=== PATIENT | male | born 1955 | race Caucasian/White ===

== ENCOUNTER 2021-02-04 09:15 | Emergency (ER) | payer MEDICARE, BC ==
[2021-02-04] MEDS ORDERED: Sodium Chloride 0.9% 10 ML Syringe FLUSH PRN (09:55)
[2021-02-04] MEDS ORDERED: Pantoprazole 40 MG Vial IVPUSH ONE (09:56)
[2021-02-04] MEDS ORDERED: Sodium Chloride 0.9% 1,000 ML IV SCH ×3 (10:00→12:15)
--- NOTE | 2021-02-04 11:23 | EDM.PDOC ---
ED HPI GENERAL MEDICAL PROBLEM - General Chief Complaint: Gastrointestinal Problem Stated Complaint: LOW BP/BLACK STOOL/BODY SWEATS Time Seen by Provider: 02/04/21 09:38 Source of Information: Reports: Patient, RN Notes Reviewed - History of Present Illness INITIAL COMMENTS - FREE TEXT/NARRATIVE: 65 yr old male had an episode of black watery diarrhea last evening with feeling of "upset stomach" and than a more formed black stool this AM not long ago. Did eat out yesterday noon in [place], pancake, eggs type of meal. No fever or chills. Feels mildly short of breath with walking, very mild dizziness when standing and walking. No bright blood at any time. No nausea or vomiting. No hx recent ansaids. Has never had anythng like this before. - Related Data Allergies Allergy/AdvReac Type Severity Reaction Status Date / Time No Known Allergies Allergy Verified 02/04/21 09:35 Home Meds: Home Meds Aspirin 81 mg PO ASDIRECTED 02/04/21 [History] Pantoprazole Sodium [Protonix] 40 mg PO BID #20 tablet. 02/04/21 [Rx] amLODIPine [Norvasc] 5 mg PO DAILY 02/04/21 [History] atorvaSTATin [Lipitor] 40 mg PO BEDTIME 02/04/21 [History] lisinopriL [Lisinopril] 20 mg PO 02/04/21 [History] Past Medical History HEENT History: Reports: Cataract Cardiovascular History: Reports: High Cholesterol, Hypertension Respiratory History: Reports: None Gastrointestinal History: Reports: GERD Genitourinary History: Reports: None Musculoskeletal History: Reports: None Neurological History: Reports: Vertigo Psychiatric History: Reports: None Endocrine/Metabolic History: Reports: [place]'s Disease Hematologic History: Reports: None Immunologic History: Reports: None Oncologic (Cancer) History: Reports: None Dermatologic History: Reports: None - Infectious Disease History Infectious Disease History: Reports: Chicken Pox, Mumps - Past Surgical History Head Surgeries/Procedures: Reports: None HEENT Surgical History: Reports: Adenoidectomy, Cataract Surgery, Detached Retina, Eye Surgery, LASIK, Oral Surgery, Tonsillectomy, Other (See Below) Other HEENT Surgeries/Procedures: PRA Social & Family History - Family History Family Medical History: No Pertinent Family History Cardiac: Reports: [place] Neurological: Reports: CVA Endocrine/Metabolic: Reports: Diabetes, type II - Tobacco Use Tobacco Use Status *Q: Never Tobacco User - Caffeine Use Caffeine Use: Reports: Coffee, Tea - Recreational Drug Use Recreational Drug Use: No ED ROS GENERAL - Review of Systems Review Of Systems: See Below Constitutional: Denies: Fever, Chills HEENT: Reports: No Symptoms Respiratory: Denies: Shortness of Breath Cardiovascular: Denies: Chest Pain GI/Abdominal: Reports: Abdominal Pain (mild, upper and mid abd), Diarrhea, Decreased Appetite, Melena : Reports: No Symptoms Musculoskeletal: Reports: No Symptoms Skin: Reports: Pallor Neurological: Reports: Dizziness (mild) ED EXAM, GI/ABD - Physical Exam Exam: See Below General Appearance: Alert, No Apparent Distress Throat/Mouth: Normal Inspection, Normal Oropharynx Head: Atraumatic Neck: Supple Respiratory/Chest: No Respiratory Distress, Lungs Clear, Normal Breath Sounds Cardiovascular: Tachycardia GI/Abdominal Exam: Soft, Non-Tender Rectal (Males) Exam: Other (small amt of black stool, moderately heme pos. ) Back Exam: No: CVA Tenderness (L), CVA Tenderness (R) Extremities: Normal Inspection, Normal Range of Motion. No: Pedal Edema, Leg Pain Neurological: Alert, Oriented, No Motor/Sensory Deficits Skin Exam: Warm, Dry, Normal Color, No Rash Course - Vital Signs Last Recorded V/S: Last Vital Signs Temp 97.3 F 02/04/21 09:39 Pulse 120 H 02/04/21 09:39 Resp 22 H 02/04/21 09:39 BP 131/81 02/04/21 09:39 Pulse Ox 98 02/04/21 09:39 Orthostatic Blood Pressure [ 118/77 Standing] Orthostatic Blood Pressure [ 110/88 Sitting] Orthostatic Blood Pressure [ 134/84 Supine] - Orders/Labs/Meds Orders: Active Orders 24 hr Category Date Time Status PATIENT RETYPE [BBK] Routine Lab 02/04/21 10:34 Ordered Peripheral IV Insertion Adult [OM.PC] Stat Oth 02/04/21 09:55 Ordered Labs: Laboratory Tests 02/04/21 02/04/21 02/04/21 Range/Units 09:35 09:35 09:35 WBC 10.77 H (4.23-9.07) K/mm3 RBC 3.76 L (4.63-6.08) M/mm3 Hgb 11.9 L (13.7-17.5) gm/dl Hct 35.2 L (40.1-51.0) % MCV 93.6 H (79.0-92.2) fl MCH 31.6 (25.7-32.2) pg MCHC 33.8 (32.2-35.5) g/dl RDW Std Deviation 44.5 H (35.1-43.9) fL Plt Count 254 (163-337) K/mm3 MPV 9.7 (9.4-12.3) fl Neut % (Auto) 70.9 H (34.0-67.9) % Lymph % (Auto) 20.1 L (21.8-53.1) % [place] % (Auto) 8.0 (5.3-12.2) % Eos % (Auto) 0.5 L (0.8-7.0) Baso % (Auto) 0.3 (0.1-1.2) % Neut # (Auto) 7.65 H (1.78-5.38) K/mm3 Lymph # (Auto) 2.16 (1.32-3.57) K/mm3 [place] # (Auto) 0.86 H (0.30-0.82) K/mm3 Eos # (Auto) 0.05 (0.04-0.54) K/mm3 Baso # (Auto) 0.03 (0.01-0.08) K/mm3 Manual Slide Review Normal smear Sodium 141 (136-145) mEq/L Potassium 4.8 (3.5-5.1) mEq/L Chloride 106 (98-107) mEq/L Carbon Dioxide 24 (21-32) mEq/L Anion Gap 15.8 H (5-15) BUN 55 H (7-18) mg/dL Creatinine 1.1 (0.7-1.3) mg/dL Est Cr Clr Drug Dosing 67.29 mL/min Estimated GFR (MDRD) > 60 (>60) mL/min BUN/Creatinine Ratio 50.0 H (14-18) Glucose 143 H (70-99) mg/dL Calcium 8.4 L (8.5-10.1) mg/dL Total Bilirubin 0.8 (0.2-1.0) mg/dL AST 23 (15-37) U/L ALT 49 (16-63) U/L Alkaline Phosphatase 72 (46-116) U/L Total Protein 6.9 (6.4-8.2) g/dl Albumin 3.5 (3.4-5.0) g/dl Globulin 3.4 gm/dL Albumin/Globulin Ratio 1.0 (1-2) SARS-CoV-2 RNA (ONOFRE) (NEGATIVE) Blood Type A POSITIVE Gel Antibody Screen Negative 02/04/21 Range/Units 09:38 WBC (4.23-9.07) K/mm3 RBC (4.63-6.08) M/mm3 Hgb (13.7-17.5) gm/dl Hct (40.1-51.0) % MCV (79.0-92.2) fl MCH (25.7-32.2) pg MCHC (32.2-35.5) g/dl RDW Std Deviation (35.1-43.9) fL Plt Count (163-337) K/mm3 MPV (9.4-12.3) fl Neut % (Auto) (34.0-67.9) % Lymph % (Auto) (21.8-53.1) % [place] % (Auto) (5.3-12.2) % Eos % (Auto) (0.8-7.0) Baso % (Auto) (0.1-1.2) % Neut # (Auto) (1.78-5.38) K/mm3 Lymph # (Auto) (1.32-3.57) K/mm3 [place] # (Auto) (0.30-0.82) K/mm3 Eos # (Auto) (0.04-0.54) K/mm3 Baso # (Auto) (0.01-0.08) K/mm3 Manual Slide Review Sodium (136-145) mEq/L Potassium (3.5-5.1) mEq/L Chloride (98-107) mEq/L Carbon Dioxide (21-32) mEq/L Anion Gap (5-15) BUN (7-18) mg/dL Creatinine (0.7-1.3) mg/dL Est Cr Clr Drug Dosing mL/min Estimated GFR (MDRD) (>60) mL/min BUN/Creatinine Ratio (14-18) Glucose (70-99) mg/dL Calcium (8.5-10.1) mg/dL Total Bilirubin (0.2-1.0) mg/dL AST (15-37) U/L ALT (16-63) U/L Alkaline Phosphatase (46-116) U/L Total Protein (6.4-8.2) g/dl Albumin (3.4-5.0) g/dl Globulin gm/dL Albumin/Globulin Ratio (1-2) SARS-CoV-2 RNA (ONOFRE) Negative (NEGATIVE) Blood Type Gel Antibody Screen Meds: Medications Discontinued Medications Generic Name Dose Route Start Last Admin Trade Name Freq PRN Reason Stop Dose Admin Sodium Chloride 1,000 mls @ 999 mls/hr 02/04/21 10:00 02/04/21 10:01 Normal Saline IV 999 mls/hr ONETIME MAXIMILIANO Administration Sodium Chloride 1,000 mls @ 999 mls/hr 02/04/21 12:15 02/04/21 12:22 Normal Saline IV 999 mls/hr ONETIME MAXIMILIANO Administration Sodium Chloride 1,000 mls @ 999 mls/hr 02/04/21 12:15 Normal Saline IV ONETIME MAXIMILIANO Pantoprazole Sodium 40 mg 02/04/21 09:56 02/04/21 10:01 Pantoprazole 40 Mg Vial IVPUSH 02/04/21 09:57 40 mg ONETIME ONE Administration Sodium Chloride 10 ml 02/04/21 09:55 02/04/21 10:01 Sodium Chloride 0.9% 10 Ml Syringe FLUSH 10 ml ASDIRECTED PRN Administration Keep Vein Open - Re-Assessments/Exams Free Text/Narrative Re-Assessment/Exam: 02/04/21 15:11. No further diarrhea or BM while here in the ED. Hgb 11.9, other labs are relatively normal. He did have mild tachycardia on arrival which imrpoved with 1 liter NS and further improved after 2nd liter NS. I have discussed this with Dr Guzman, Gen. Surgeon centrifugal station operator. He agrees that pt does not appear to be actively bleeding in a significant way, appears medically stable to go home and be managed outpatient. Pt feels much better after IV fluid, discharge instr. as documented. Departure - Departure Time of Disposition: 13:15 Disposition: Home, Self-Care 01 Condition: Fair Clinical Impression: Upper GI hemorrhage Diarrhea Qualifiers: Diarrhea type: unspecified type Qualified Code(s): R19.7 - Diarrhea, unspecified - Discharge Information Prescriptions: Pantoprazole Sodium [Protonix] 40 mg PO BID #20 tablet.dr Instructions: Gastrointestinal Bleeding, [id number] Referrals: Marcelino Brian MD [Primary Care Provider] - Forms: ED Department Discharge Additional Instructions: Clear liquids until this evening, than careful bland diet as tolerated. No as pirin or antiinflmatories for now. Protonix 40 twice daily. Prescription has been sent to [facility]. See Dr Guzman next week. Call [phone] for appointment. Return to ED as needed if symptoms worsening in any way. Sepsis Event Note (ED) - Evaluation Sepsis Screening Result: No Definite Risk - Focused Exam Vital Signs: Vital Signs Temp Pulse Resp BP Pulse Ox 02/04/21 09:39 97.3 F 120 H 22 H 131/81 98 - My Orders Last 24 Hours: My Active Orders 02/04/21 09:55 Peripheral IV Insertion Adult [OM.PC] Stat 02/04/21 10:34 PATIENT RETYPE [BBK] Routine - Assessment/Plan Last 24 Hours: My Active Orders 02/04/21 09:55 Peripheral IV Insertion Adult [OM.PC] Stat 02/04/21 10:34 PATIENT RETYPE [BBK] Routine
== END 2021-02-04 13:31 | disposition home or self-care (01) ==
LOC: JD.ED 09:15
DX: K92.2 Gastrointestinal hemorrhage, unspecified (principal); R19.7 Diarrhea, unspecified; E78.00 Pure hypercholesterolemia, unspecified; I10 Essential (primary) hypertension; K21.9 Gastro-esophageal reflux disease without esophagitis; Z79.899 Other long term (current) drug therapy; Z79.82 Long term (current) use of aspirin; Z20.822 Contact with and (suspected) exposure to COVID-19
CPT/HCPCS: 36415; 80053; 85025; 86850; 86900; 86901; 96374; 99284; C9113; J7030; U0002; 99283

== ENCOUNTER 2021-02-06 15:02 | Observation (INO) | payer MEDICARE, BC ==
[2021-02-06] MEDS ORDERED: Sodium Chloride 0.9% 10 ML Syringe FLUSH PRN (15:18)
[2021-02-06] MEDS ORDERED: Pantoprazole 40 MG Vial IVPUSH ONE (16:23)
--- NOTE | 2021-02-06 16:44 | EDM.PDOC ---
ED HPI GENERAL MEDICAL PROBLEM - General Chief Complaint: General Stated Complaint: SENT BY [facility] NOT GETTING BETTER Time Seen by Provider: 02/06/21 15:04 Source of Information: Reports: Patient, Family, RN Notes Reviewed History Limitations: Reports: No Limitations - History of Present Illness INITIAL COMMENTS - FREE TEXT/NARRATIVE: Patient is a 65-year-old male presenting to the emergency department at the request of the general surgeon at [place]. He has had dark stools since Tuesday of this week. He was seen in our emergency department and at that time found to have an hemoglobin of 11.9. He had his hemoglobin rechecked at the clinic today and it was found to be low at 8.2. He was advised to come to the emergency department to be admitted with plans of completing an EGD tomorrow. He denies any dizziness upon standing, however states that he has been fatigued and short of breath with exertion. He is much more pale than normal. Denies any history of GI bleeds. Denies any chest pain or shortness of breath at rest. Reports that he has had 1-2 dark stools daily since Tuesday. Abdominal Pain Score (Numeric/FACES): 0 - Related Data Allergies Allergy/AdvReac Type Severity Reaction Status Date / Time No Known Allergies Allergy Verified 02/07/21 00:40 Home Meds: Home Meds Aspirin 81 mg PO ASDIRECTED 02/04/21 [History] Pantoprazole Sodium [Protonix] 40 mg PO BID #20 tablet. 02/04/21 [Rx] amLODIPine [Norvasc] 5 mg PO DAILY 02/04/21 [History] atorvaSTATin [Lipitor] 40 mg PO BEDTIME 02/04/21 [History] lisinopriL [Lisinopril] 20 mg PO DAILY 02/04/21 [History] Past Medical History HEENT History: Reports: Cataract Cardiovascular History: Reports: High Cholesterol, Hypertension Respiratory History: Reports: None Gastrointestinal History: Reports: GERD Genitourinary History: Reports: None Musculoskeletal History: Reports: None Neurological History: Reports: Vertigo Psychiatric History: Reports: None Endocrine/Metabolic History: Reports: [place]'s Disease Hematologic History: Reports: None Immunologic History: Reports: None Oncologic (Cancer) History: Reports: None Dermatologic History: Reports: None - Infectious Disease History Infectious Disease History: Reports: Chicken Pox, Mumps - Past Surgical History Head Surgeries/Procedures: Reports: None HEENT Surgical History: Reports: Adenoidectomy, Cataract Surgery, Detached Retina, Eye Surgery, LASIK, Oral Surgery, Tonsillectomy, Other (See Below) Other HEENT Surgeries/Procedures: PRA Social & Family History - Family History Family Medical History: No Pertinent Family History Cardiac: Reports: [place] Neurological: Reports: CVA Endocrine/Metabolic: Reports: Diabetes, type II - Tobacco Use Tobacco Use Status *Q: Former Tobacco User Used Tobacco, but Quit: Yes Month/Year Tobacco Last Used: 30 yrs - Caffeine Use Caffeine Use: Reports: Coffee, Tea - Recreational Drug Use Recreational Drug Use: No ED ROS GENERAL - Review of Systems Review Of Systems: See Below Constitutional: Reports: Weakness, Fatigue. Denies: Fever, Chills HEENT: Reports: No Symptoms Respiratory: Reports: Shortness of Breath (With exertion) Cardiovascular: Reports: Dyspnea on Exertion. Denies: Chest Pain, Lightheadedness Endocrine: Reports: No Symptoms GI/Abdominal: Reports: Black Stool. Denies: Abdominal Pain, Nausea, Vomiting : Reports: No Symptoms Musculoskeletal: Reports: No Symptoms Skin: Reports: No Symptoms Neurological: Reports: No Symptoms Psychiatric: Reports: No Symptoms Hematologic/Lymphatic: Reports: No Symptoms Immunologic: Reports: No Symptoms ED EXAM, GENERAL - Physical Exam Exam: See Below Exam Limited By: No Limitations General Appearance: Alert, WD/WN, No Apparent Distress Respiratory/Chest: No Respiratory Distress, Lungs Clear, Normal Breath Sounds, No Accessory Muscle Use, Chest Non-Tender Cardiovascular: Normal Peripheral Pulses, Regular Rate, Rhythm, No Edema, No Gallop, No JVD, No Murmur, No Rub Neurological: Alert, Oriented, CN II-XII Intact, Normal Cognition, Normal Gait, Normal Reflexes, No Motor/Sensory Deficits Psychiatric: Normal Affect, Normal Mood Skin Exam: Warm, Dry, Intact, No Rash, Pallor Course - Vital Signs Last Recorded V/S: Last Vital Signs Temp 98.4 F 02/07/21 09:45 Pulse 94 02/07/21 16:15 Resp 12 02/07/21 16:15 BP 124/60 02/07/21 16:15 Pulse Ox 93 L 02/07/21 16:15 - Orders/Labs/Meds Orders: Medication Orders Acetaminophen (Acetaminophen 325 Mg Tab) 650 mg PO Q4H PRN PRN Reason: Pain (Mild 1-3)/fever Atorvastatin Calcium (Atorvastatin 40 Mg Tab) 40 mg PO BEDTIME [facility] Last Admin: 02/07/21 20:32 Dose: 40 mg Documented by: ALICE Lactated Ringer's (Ringers, Lactated) 1,000 mls @ 75 mls/hr IV ASDIRECTED [facility] Last Admin: 02/07/21 16:11 Dose: 75 mls/hr Documented by: Infusion: 02/07/21 13:52 Dose: 75 mls/hr Documented by: Admin: 02/07/21 03:05 Dose: 125 mls/hr Documented by: Infusion: 02/07/21 02:53 Dose: 125 mls/hr Documented by: Admin: 02/06/21 18:53 Dose: 125 mls/hr Documented by: MATEUS Ondansetron HCl (Ondansetron 4 Mg Tab.Dis) 4 mg PO Q4H PRN PRN Reason: nausea, able to take PO Ondansetron HCl (Ondansetron 4 Mg/2 Ml Sdv) 4 mg IV Q4H PRN PRN Reason: Nausea/Vomiting Ondansetron HCl (Ondansetron 4 Mg/2 Ml Sdv) 4 mg IVPUSH ONETIME PRN PRN Reason: Nausea/Vomiting Pantoprazole Sodium (Pantoprazole 40 Mg Vial) 40 mg IVPUSH Q12H [facility] Last Admin: 02/07/21 16:02 Dose: 40 mg Documented by: Admin: 02/07/21 04:29 Dose: 40 mg Documented by: MAXIMILIANO Sodium Chloride (Sodium Chloride 0.9% 10 Ml Syringe) 10 ml FLUSH ASDIRECTED PRN PRN Reason: Keep Vein Open Last Admin: 02/06/21 16:00 Dose: 10 ml Documented by: SHAHANA Labs: Laboratory Tests 02/06/21 02/06/21 02/06/21 Range/Units 16:00 16:00 16:00 WBC 6.79 (4.23-9.07) K/mm3 RBC 2.61 L (4.63-6.08) M/mm3 Hgb 8.2 L D (13.7-17.5) gm/dl Hct 24.7 L (40.1-51.0) % MCV 94.6 H (79.0-92.2) fl MCH 31.4 (25.7-32.2) pg MCHC 33.2 (32.2-35.5) g/dl RDW Std Deviation 45.1 H (35.1-43.9) fL Plt Count 156 L D (163-337) K/mm3 MPV 9.8 (9.4-12.3) fl Neut % (Auto) 58.4 (34.0-67.9) % Lymph % (Auto) 27.7 (21.8-53.1) % [place] % (Auto) 11.6 (5.3-12.2) % Eos % (Auto) 1.8 (0.8-7.0) Baso % (Auto) 0.4 (0.1-1.2) % Neut # (Auto) 3.96 (1.78-5.38) K/mm3 Lymph # (Auto) 1.88 (1.32-3.57) K/mm3 [place] # (Auto) 0.79 (0.30-0.82) K/mm3 Eos # (Auto) 0.12 (0.04-0.54) K/mm3 Baso # (Auto) 0.03 (0.01-0.08) K/mm3 Sodium 137 (136-145) mEq/L Potassium 3.8 (3.5-5.1) mEq/L Chloride 105 (98-107) mEq/L Carbon Dioxide 25 (21-32) mEq/L Anion Gap 10.8 (5-15) BUN 29 H D (7-18) mg/dL Creatinine 1.3 (0.7-1.3) mg/dL Est Cr Clr Drug Dosing 56.93 mL/min Estimated GFR (MDRD) 55 (>60) mL/min BUN/Creatinine Ratio 22.3 H (14-18) Glucose 113 H (70-99) mg/dL Calcium 7.7 L (8.5-10.1) mg/dL Total Bilirubin 0.5 (0.2-1.0) mg/dL AST 24 (15-37) U/L ALT 42 (16-63) U/L Alkaline Phosphatase 61 (46-116) U/L Total Protein 5.7 L (6.4-8.2) g/dl Albumin 3.1 L (3.4-5.0) g/dl Globulin 2.6 gm/dL Albumin/Globulin Ratio 1.2 (1-2) Blood Type A POSITIVE Gel Antibody Screen Negative Crossmatch See Detail Meds: Medications Generic Name Dose Route Start Last Admin Trade Name Carrollq PRN Reason Stop Dose Admin Acetaminophen 650 mg 02/06/21 17:08 Acetaminophen 325 Mg Tab PO Q4H PRN Pain (Mild 1-3)/fever Atorvastatin Calcium 40 mg 02/07/21 21:00 02/07/21 20:32 Atorvastatin 40 Mg Tab PO 40 mg BEDTIME MAXIMILIANO Administration Lactated Ringer's 1,000 mls @ 75 mls/hr 02/06/21 17:15 02/07/21 16:11 Ringers, Lactated IV 75 mls/hr ASDIRECTED MAXIMILIANO Administration Ondansetron HCl 4 mg 02/06/21 17:08 Ondansetron 4 Mg Tab.Dis PO Q4H PRN nausea, able to take PO Ondansetron HCl 4 mg 02/06/21 17:08 Ondansetron 4 Mg/2 Ml Sdv IV Q4H PRN Nausea/Vomiting Ondansetron HCl 4 mg 02/07/21 07:56 Ondansetron 4 Mg/2 Ml Sdv IVPUSH ONETIME PRN Nausea/Vomiting Pantoprazole Sodium 40 mg 02/07/21 05:00 02/07/21 16:02 Pantoprazole 40 Mg Vial IVPUSH 40 mg Q12H MAXIMILIANO Administration Sodium Chloride 10 ml 02/06/21 15:18 02/06/21 16:00 Sodium Chloride 0.9% 10 Ml Syringe FLUSH 10 ml ASDIRECTED PRN Administration Keep Vein Open Discontinued Medications Generic Name Dose Route Start Last Admin Trade Name Freq PRN Reason Stop Dose Admin Ephedrine Sulfate Confirm 02/07/21 07:12 Ephedrine 50 Mg/Ml Sdv Administered 02/07/21 07:13 Dose 50 mg .ROUTE .STK-MED ONE Fentanyl Confirm 02/07/21 07:11 Fentanyl 100 Mcg/2 Ml Sdv Administered 02/07/21 07:12 Dose 100 mcg .ROUTE .STK-MED ONE Lidocaine HCl Confirm 02/07/21 07:10 Xylocaine-Mpf 1% Administered 02/07/21 07:11 Dose 4 mls @ as directed .ROUTE .STK-MED ONE Lactated Ringer's Confirm 02/07/21 07:10 Ringers, Lactated Administered 02/07/21 07:11 Dose 1,000 mls @ as directed .ROUTE .STK-MED ONE Magnesium Sulfate 2 gm/ Premix 50 mls @ 25 mls/hr 02/07/21 07:45 02/07/21 08:07 IV Not Given Q1H MAXIMILIANO Magnesium Sulfate 2 gm/ Premix 50 mls @ 25 mls/hr 02/07/21 07:53 02/07/21 09:54 IV 02/07/21 09:52 25 mls/hr ONETIME ONE Administration Lactated Ringer's Confirm 02/07/21 08:04 Ringers, Lactated Administered 02/07/21 08:05 Dose 1,000 mls @ as directed .ROUTE .STK-MED ONE Lactated Ringer's Confirm 02/07/21 09:00 Ringers, Lactated Administered 02/07/21 09:01 Dose 1,000 mls @ as directed .ROUTE .STK-MED ONE Miscellaneous Medication Confirm 02/07/21 07:13 Phenylephrine Hcl In 0.9% Nacl 1 Mg/10 Ml Syringe Administered 02/07/21 07:14 Dose 1 mg .ROUTE .STK-MED ONE Pantoprazole Sodium 40 mg 02/06/21 16:23 02/06/21 16:52 Pantoprazole 40 Mg Vial IVPUSH 02/06/21 16:24 40 mg ONETIME ONE Administration Polyethylene Glycol/Electrolytes 4,000 ml 02/06/21 18:00 02/06/21 18:57 Polyethylene Glycol/Electrolytes 4,000 Ml Bottle PO 02/06/21 18:01 1 each ONETIME ONE Administration Propofol Confirm 02/07/21 07:11 Propofol 200 Mg/20 Ml Sdv Administered 02/07/21 07:12 Dose 400 mg .ROUTE .STK-MED ONE Propofol Confirm 02/07/21 08:35 Propofol 200 Mg/20 Ml Sdv Administered 02/07/21 08:36 Dose 200 mg .ROUTE .STK-MED ONE - Re-Assessments/Exams Free Text/Narrative Re-Assessment/Exam: Patient is a 65-year-old male presenting to the emergency department at the request of general surgeon at [place] to be admitted for upper GI bleed with intent to have EGD completed tomorrow. He reports feeling fatigued and short of breath but denies any dizziness or chest pain. Reports 1-2 black stools per day since Tuesday. Hemoglobin has dropped from 11.9-8.2. I have ordered blood work, EKG, and type and screen. He is currently taking Protonix 40 mg twice daily with his last dose being this morning. I have ordered Protonix 40 mg IV to be given now. 02/06/21 16:50 General surgeon, Dr. Guzman was here to see the patient. He will admit the patient into observation with the intent to have EGD completed tomorrow. Departure - Departure Time of Disposition: 16:51 Disposition: Refer to Observation Condition: Good Clinical Impression: Upper GI hemorrhage - Discharge Information Sepsis Event Note (ED) - Evaluation Sepsis Screening Result: No Definite Risk
--- NOTE | 2021-02-06 17:02 | PCM.HP.2 ---
H&P History of Present Illness - General Date of Service: 02/06/21 Admit Problem/Dx: Admission Diagnosis/Problem Admission Diagnosis/Problem GI bleed not requiring more than 4 units of blood in 24 hours, ICU, or surgery Source of Information: Patient History Limitations: Reports: No Limitations - History of Present Illness Initial Comments - Free Text/Narative: Patient took Saturday 02/03 for orthopedic check. When he got home he had a slight stomach ache and went to have a BM and it was black. Next day, he had another black stool and was not feeling well. He was sent to the ER where he was orthostatic and tachycardic and Hgb was 11.9. He was hydrated and started on protonix. His symptoms resolved and was discharged home. I was called about him and asked for him to follow up with me in clinic next week. However, he has continued to have black stools since then, though to a lesser extent. Today he was not feeling well. He was easily getting fatigued and feels his heart racing with when walking. Also weak. He called the clinic and was sent for a CBC which returned a Hgb of 8.6. I was called about him and asked he go to the ER. in the ER vitals were stable but Hgb was 8.2. I saw him and recommended admission for EGD/Colonoscopy. Of note, he never had any abdominal pain since Tue. He reports that he has been worked up in 10/2020 for feeling of SOB with CXR, EKG, labs which I reviewed. CXR was normal, EKG was non-acute, labs showed Hgb of 15. He reports that he had a stress test as well which was normal. Onset of Symptoms: Reports: Gradual Duration of Symptoms: Reports: Day(s): (4), Getting Worse Location: Reports: Abdomen Improves with: Reports: None Worsens with: Reports: None Associated Symptoms: Reports: Malaise, Weakness - Related Data Allergies/Adverse Reactions: Allergies Allergy/AdvReac Type Severity Reaction Status Date / Time No Known Allergies Allergy Verified 02/04/21 09:35 Home Medications: Home Meds Aspirin 81 mg PO ASDIRECTED 02/04/21 [History] Pantoprazole Sodium [Protonix] 40 mg PO BID #20 tablet. 02/04/21 [Rx] amLODIPine [Norvasc] 5 mg PO DAILY 02/04/21 [History] atorvaSTATin [Lipitor] 40 mg PO BEDTIME 02/04/21 [History] lisinopriL [Lisinopril] 20 mg PO DAILY 02/04/21 [History] Past Medical History HEENT History: Reports: Cataract Cardiovascular History: Reports: High Cholesterol, Hypertension Respiratory History: Reports: None Gastrointestinal History: Reports: GERD Genitourinary History: Reports: None Musculoskeletal History: Reports: None Neurological History: Reports: Vertigo Psychiatric History: Reports: None Endocrine/Metabolic History: Reports: [place]'s Disease Hematologic History: Reports: None Immunologic History: Reports: None Oncologic (Cancer) History: Reports: None Dermatologic History: Reports: None - Infectious Disease History Infectious Disease History: Reports: Chicken Pox, Mumps - Past Surgical History Head Surgeries/Procedures: Reports: None HEENT Surgical History: Reports: Adenoidectomy, Cataract Surgery, Detached Retina, Eye Surgery, LASIK, Oral Surgery, Tonsillectomy, Other (See Below) Other HEENT Surgeries/Procedures: PRA Social & Family History - Family History Family Medical History: No Pertinent Family History Cardiac: Reports: [place] Neurological: Reports: CVA Endocrine/Metabolic: Reports: Diabetes, type II - Tobacco Use Tobacco Use Status *Q: Former Tobacco User Used Tobacco, but Quit: Yes Month/Year Tobacco Last Used: 30 yrs - Caffeine Use Caffeine Use: Reports: Coffee, Tea - Recreational Drug Use Recreational Drug Use: No H&P Review of Systems - Review of Systems: Review Of Systems: See Below General: Reports: No Symptoms HEENT: Reports: No Symptoms Pulmonary: Reports: No Symptoms Cardiovascular: Reports: No Symptoms Gastrointestinal: Reports: Melena Genitourinary: Reports: No Symptoms Musculoskeletal: Reports: No Symptoms Skin: Reports: No Symptoms Psychiatric: Reports: No Symptoms Neurological: Reports: No Symptoms Exam - Exam Exam: See Below - Vital Signs Vital Signs: Last Vital Signs Temp 98.4 F 02/06/21 15:16 Pulse 85 02/06/21 15:16 Resp 20 02/06/21 15:16 BP 101/59 L 02/06/21 15:16 Pulse Ox 97 02/06/21 15:16 Weight: 100.335 kg - Exam General: Alert, Oriented, Cooperative Lungs: Clear to Auscultation, Normal Respiratory Effort Cardiovascular: Regular Rate, Regular Rhythm, Normal S1, Normal S2 GI/Abdominal Exam: Normal Bowel Sounds, Soft, Non-Tender, No Organomegaly, No Distention - Patient Data Lab Results Last 24 hrs: Laboratory Results - last 24 hr 02/06/21 02/06/21 Range/Units 16:00 16:00 WBC 6.79 (4.23-9.07) K/mm3 RBC 2.61 L (4.63-6.08) M/mm3 Hgb 8.2 L D (13.7-17.5) gm/dl Hct 24.7 L (40.1-51.0) % MCV 94.6 H (79.0-92.2) fl MCH 31.4 (25.7-32.2) pg MCHC 33.2 (32.2-35.5) g/dl RDW Std Deviation 45.1 H (35.1-43.9) fL Plt Count 156 L D (163-337) K/mm3 MPV 9.8 (9.4-12.3) fl Neut % (Auto) 58.4 (34.0-67.9) % Lymph % (Auto) 27.7 (21.8-53.1) % [place] % (Auto) 11.6 (5.3-12.2) % Eos % (Auto) 1.8 (0.8-7.0) Baso % (Auto) 0.4 (0.1-1.2) % Neut # (Auto) 3.96 (1.78-5.38) K/mm3 Lymph # (Auto) 1.88 (1.32-3.57) K/mm3 [place] # (Auto) 0.79 (0.30-0.82) K/mm3 Eos # (Auto) 0.12 (0.04-0.54) K/mm3 Baso # (Auto) 0.03 (0.01-0.08) K/mm3 Sodium 137 (136-145) mEq/L Potassium 3.8 (3.5-5.1) mEq/L Chloride 105 (98-107) mEq/L Carbon Dioxide 25 (21-32) mEq/L Anion Gap 10.8 (5-15) BUN 29 H D (7-18) mg/dL Creatinine 1.3 (0.7-1.3) mg/dL Est Cr Clr Drug Dosing 56.93 mL/min Estimated GFR (MDRD) 55 (>60) mL/min BUN/Creatinine Ratio 22.3 H (14-18) Glucose 113 H (70-99) mg/dL Calcium 7.7 L (8.5-10.1) mg/dL Total Bilirubin 0.5 (0.2-1.0) mg/dL AST 24 (15-37) U/L ALT 42 (16-63) U/L Alkaline Phosphatase 61 (46-116) U/L Total Protein 5.7 L (6.4-8.2) g/dl Albumin 3.1 L (3.4-5.0) g/dl Globulin 2.6 gm/dL Albumin/Globulin Ratio 1.2 (1-2) Result Diagrams: 02/06/21 16:00 02/06/21 16:00 Sepsis Event Note - Evaluation Sepsis Screening Result: No Definite Risk - Focused Exam Vital Signs: Vital Signs Temp Pulse Resp BP Pulse Ox 02/06/21 15:16 98.4 F 85 20 101/59 L 97 Problem List Initiated/Reviewed/Updated: No Orders Last 24hrs: Active Orders 24 hr Category Date Time Status Patient Status [ADT] Routine ADT 02/06/21 16:44 Active EKG Documentation Completion [RC] STAT Care 02/06/21 15:19 Active Peripheral IV Care [RC] . DIRECTED Care 02/06/21 15:19 Active CORONAVIRUS COVID-19 ONOFRE [MOLEC] Routine Lab 02/06/21 15:19 Ordered TYPE AND SCREEN [BBK] Stat Lab 02/06/21 16:00 Received Sodium Chloride 0.9% [Saline Flush] Med 02/06/21 15:18 Active 10 ml FLUSH ASDIRECTED PRN Peripheral IV Insertion Adult [OM.PC] Stat Oth 02/06/21 15:18 Ordered Medication Orders Sodium Chloride (Sodium Chloride 0.9% 10 Ml Syringe) 10 ml FLUSH ASDIRECTED PRN PRN Reason: Keep Vein Open Last Admin: 02/06/21 16:00 Dose: 10 ml Documented by: SHAHANA Assessment/Plan Comment:: Patient has GI bleeding presenting as melena. I recommended EGD/Colonoscopy to evaluate. We discussed risks, benefits and alternatives. Risks include bleeding and perforation which are slightly increased due to this interventional procedure. Patient verbalized understanding. Informed consent was signed. We will proceed with the procedure tomorrow 8 am. Prep tonight. - Mortality Measure Prognosis:: Good (slow bleeding)
[2021-02-06] MEDS ORDERED: Ondansetron 4 MG/2 ML SDV IV PRN (17:08)
[2021-02-06] MEDS ORDERED: Ondansetron 4 MG Tab.DIS PO PRN (17:08)
[2021-02-06] MEDS ORDERED: Acetaminophen 325 MG Tab PO PRN (17:08)
[2021-02-06] MEDS ORDERED: Polyethylene Glycol/Electrolytes 4,000 ML Bottle PO ONE (18:00)
[2021-02-06] MEDS: Lactated Ringers 1,000 ML IV SCH (18:53)
[2021-02-07] MEDS: Lactated Ringers 1,000 ML IV SCH ×2 (03:05→16:11)
[2021-02-07] MEDS: Pantoprazole 40 MG Vial IVPUSH SCH ×2 (04:29→16:02)
--- NOTE | 2021-02-07 07:04 | PCM.PREANE ---
Preanesthetic Assessment - Procedure Proposed Procedure: Diagnostic EGD and Diagnostic Colonoscopy - Anesthesia/Transfusion/Family Hx Anesthesia History: Prior Anesthesia Without Reaction Family History of Anesthesia Reaction: No Transfusion History: No Prior Transfusion(s) Intubation History: Unknown - Review of Systems General: No Symptoms, Fatigue, Malaise Pulmonary: No Symptoms (Quit smoking 30 years ago. ETOH: rarely 6 pack/month/LUZ ELENA with CPAP) Cardiovascular: No Symptoms (HTN, elevated cholesterol), Palpitations (since GI bleed.), Dyspnea on Exertion (HGB low at 7.3) Gastrointestinal: No Symptoms (GERD), Decreased Appetite, Melena Neurological: No Symptoms (Vertigo) Other: Reports: None ([place]'s Disease) - Physical Assessment NPO Status Date: 02/06/21 NPO Status Time: 08:00 Vital Signs: Last Vital Signs Temp 36.8 C 02/07/21 04:33 Pulse 88 02/07/21 04:33 Resp 16 02/07/21 04:33 BP 103/53 L 02/07/21 04:33 Pulse Ox 95 02/07/21 04:33 Height: 1.78 m Weight: 100.062 kg ASA Class: 3E Mental Status: Alert & Oriented x3 Airway Class: Mallampati = 3 Dentition: Reports: Normal Dentition, Caries Thyro-Mental Finger Breadths: 4 Mouth Opening Finger Breadths: 3 ROM/Head Extension: Full Lungs: Clear to Auscultation, Normal Respiratory Effort Cardiovascular: Regular Rate, Regular Rhythm, Murmurs - Lab Values: Laboratory Last Values WBC 4.69 K/mm3 (4.23-9.07) 02/07/21 05:30 RBC 2.31 M/mm3 (4.63-6.08) L 02/07/21 05:30 Hgb 7.3 gm/dl (13.7-17.5) L* 02/07/21 05:30 Hct 22.2 % (40.1-51.0) L 02/07/21 05:30 MCV 96.1 fl (79.0-92.2) H 02/07/21 05:30 MCH 31.6 pg (25.7-32.2) 02/07/21 05:30 MCHC 32.9 g/dl (32.2-35.5) 02/07/21 05:30 RDW Std Deviation 44.6 fL (35.1-43.9) H 02/07/21 05:30 Plt Count 114 K/mm3 (163-337) L 02/07/21 05:30 MPV 9.8 fl (9.4-12.3) 02/07/21 05:30 Neut % (Auto) 55.0 % (34.0-67.9) 02/07/21 05:30 Lymph % (Auto) 33.3 % (21.8-53.1) 02/07/21 05:30 [place] % (Auto) 9.6 % (5.3-12.2) 02/07/21 05:30 Eos % (Auto) 1.5 (0.8-7.0) 02/07/21 05:30 Baso % (Auto) 0.4 % (0.1-1.2) 02/07/21 05:30 Neut # (Auto) 2.58 K/mm3 (1.78-5.38) 02/07/21 05:30 Lymph # (Auto) 1.56 K/mm3 (1.32-3.57) 02/07/21 05:30 [place] # (Auto) 0.45 K/mm3 (0.30-0.82) 02/07/21 05:30 Eos # (Auto) 0.07 K/mm3 (0.04-0.54) 02/07/21 05:30 Baso # (Auto) 0.02 K/mm3 (0.01-0.08) 02/07/21 05:30 Manual Slide Review Abnormal smear 02/07/21 05:30 Sodium 142 mEq/L (136-145) 02/07/21 05:30 Potassium 4.0 mEq/L (3.5-5.1) 02/07/21 05:30 Chloride 109 mEq/L (98-107) H 02/07/21 05:30 Carbon Dioxide 25 mEq/L (21-32) 02/07/21 05:30 Anion Gap 12.0 (5-15) 02/07/21 05:30 BUN 20 mg/dL (7-18) H 02/07/21 05:30 Creatinine 1.0 mg/dL (0.7-1.3) 02/07/21 05:30 Est Cr Clr Drug Dosing 74.01 mL/min 02/07/21 05:30 Estimated GFR (MDRD) > 60 mL/min (>60) 02/07/21 05:30 BUN/Creatinine Ratio 20.0 (14-18) H 02/07/21 05:30 Glucose 99 mg/dL (70-99) 02/07/21 05:30 Calcium 7.7 mg/dL (8.5-10.1) L 02/07/21 05:30 Phosphorus 3.1 mg/dL (2.6-4.7) 02/07/21 05:30 Magnesium 1.7 mg/dL (1.8-2.4) L 02/07/21 05:30 Total Bilirubin 0.5 mg/dL (0.2-1.0) 02/06/21 16:00 AST 24 U/L (15-37) 02/06/21 16:00 ALT 42 U/L (16-63) 02/06/21 16:00 Alkaline Phosphatase 61 U/L (46-116) 02/06/21 16:00 Total Protein 5.7 g/dl (6.4-8.2) L 02/06/21 16:00 Albumin 3.1 g/dl (3.4-5.0) L 02/06/21 16:00 Globulin 2.6 gm/dL 02/06/21 16:00 Albumin/Globulin Ratio 1.2 (1-2) 02/06/21 16:00 SARS-CoV-2 RNA (ONOFRE) Negative (NEGATIVE) 02/06/21 16:55 Blood Type A POSITIVE 02/06/21 16:00 Gel Antibody Screen Negative 02/06/21 16:00 Above labs reviewed and noted and within acceptable ranges to proceed with procedure. - Imaging/EKG Impressions: EKG: SR rate=86, inverted T's V5-V6. - Allergies Allergies/Adverse Reactions: Allergies Allergy/AdvReac Type Severity Reaction Status Date / Time No Known Allergies Allergy Verified 02/07/21 00:40 - Anesthesia Plan Pre-Op Medication Ordered: None - Acknowledgements Anesthesia Type Planned: MAC Pt an Appropriate Candidate for the Planned Anesthesia: Yes Alternatives and Risks of Anesthesia Discussed w Pt/Guardian: Yes Pt/Guardian Understands and Agrees with Anesthesia Plan: Yes PreAnesthesia Questionnaire HEENT History: Reports: Cataract, Other (See Below) Other HEENT History: pt wears glasses for reading only Cardiovascular History: Reports: High Cholesterol, Hypertension Respiratory History: Reports: None, Other (See Below) Other Respiratory History: Patient wears a CPAP at night Gastrointestinal History: Reports: GERD Genitourinary History: Reports: None Musculoskeletal History: Reports: None Neurological History: Reports: Vertigo Psychiatric History: Reports: None Endocrine/Metabolic History: Reports: [place]'s Disease Hematologic History: Reports: None Immunologic History: Reports: None Oncologic (Cancer) History: Reports: None Dermatologic History: Reports: None - Infectious Disease History Infectious Disease History: Reports: Chicken Pox, Mumps - Past Surgical History Head Surgeries/Procedures: Reports: None HEENT Surgical History: Reports: Adenoidectomy, Cataract Surgery, Detached Retina, Eye Surgery, LASIK, Oral Surgery, Tonsillectomy, Other (See Below) Other HEENT Surgeries/Procedures: PRA Cardiovascular Surgical History: Reports: None Respiratory Surgical History: Reports: None GI Surgical History: Reports: Colonoscopy Neurological Surgical History: Reports: None - SUBSTANCE USE Tobacco Use Status *Q: Never Tobacco User Tobacco Use Within Last Twelve Months: Cigarettes Second Hand Smoke Exposure: No Recreational Drug Use History: No - HOME MEDS Home Medications: Home Meds Aspirin 81 mg PO ASDIRECTED 02/04/21 [History] Pantoprazole Sodium [Protonix] 40 mg PO BID #20 tablet. 02/04/21 [Rx] amLODIPine [Norvasc] 5 mg PO DAILY 02/04/21 [History] atorvaSTATin [Lipitor] 40 mg PO BEDTIME 02/04/21 [History] lisinopriL [Lisinopril] 20 mg PO DAILY 02/04/21 [History] - CURRENT (IN HOUSE) MEDS Current Meds: Current Medications Acetaminophen (Acetaminophen 325 Mg Tab) 650 mg PO Q4H PRN PRN Reason: Pain (Mild 1-3)/fever Lactated Ringer's (Ringers, Lactated) 1,000 mls @ 125 mls/hr IV ASDIRECTED [facility] Last Admin: 02/07/21 03:05 Dose: 125 mls/hr Documented by: Ondansetron HCl (Ondansetron 4 Mg Tab.Dis) 4 mg PO Q4H PRN PRN Reason: nausea, able to take PO Ondansetron HCl (Ondansetron 4 Mg/2 Ml Sdv) 4 mg IV Q4H PRN PRN Reason: Nausea/Vomiting Pantoprazole Sodium (Pantoprazole 40 Mg Vial) 40 mg IVPUSH Q12H MAXIMILIANO Last Admin: 02/07/21 04:29 Dose: 40 mg Documented by: Sodium Chloride (Sodium Chloride 0.9% 10 Ml Syringe) 10 ml FLUSH ASDIRECTED PRN PRN Reason: Keep Vein Open Last Admin: 02/06/21 16:00 Dose: 10 ml Documented by: Discontinued Medications Pantoprazole Sodium (Pantoprazole 40 Mg Vial) 40 mg IVPUSH ONETIME ONE Stop: 02/06/21 16:24 Last Admin: 02/06/21 16:52 Dose: 40 mg Documented by: Polyethylene Glycol/Electrolytes (Polyethylene Glycol/Electrolytes 4,000 Ml Bottle) 4,000 ml PO ONETIME ONE Stop: 02/06/21 18:01 Last Admin: 02/06/21 18:57 Dose: 1 each Documented by:
[2021-02-07] MEDS ORDERED: Lidocaine 1% 4 ML ONE (07:10)
[2021-02-07] MEDS ORDERED: Lactated Ringers 1,000 ML ONE ×3 (07:10→09:00)
[2021-02-07] MEDS ORDERED: fentaNYL 100 MCG/2 ML SDV ONE (07:11)
[2021-02-07] MEDS ORDERED: Propofol 200 MG/20 ML SDV ONE ×2 (07:11→08:35)
[2021-02-07] MEDS ORDERED: ePHEDrine 50 MG/ML SDV ONE (07:12)
[2021-02-07] MEDS ORDERED: Magnesium Sulfate/Water 2 GM in Premix Bag 1 BAG IV SCH (07:45)
[2021-02-07] MEDS ORDERED: Magnesium Sulfate/Water 2 GM in Premix Bag 1 BAG IV ONE (07:53)
[2021-02-07] MEDS ORDERED: Ondansetron 4 MG/2 ML SDV IVPUSH PRN (07:56)
--- NOTE | 2021-02-07 09:22 | PCM48HPAN ---
Post Anesthesia Note - EVALUATION WITHIN 48HRS OF ANESTHETIC Vital Signs in Normal Range: Yes Patient Participated in Evaluation: Yes Respiratory Function Stable: Yes Airway Patent: Yes Cardiovascular Function Stable: Yes Hydration Status Stable: Yes Pain Control Satisfactory: Yes Nausea and Vomiting Control Satisfactory: Yes Mental Status Recovered: Yes Vital Signs: Last Vital Signs Temp 99.5 02/07/21 0859 Pulse 104 02/07/21 0859 Resp 12 02/07/21 0859 BP 100/50 L 02/07/21 0859 Pulse Ox 94% 02/07/21 0859
--- NOTE | 2021-02-07 10:01 | PROC ---
DATE OF OPERATION: 02/07/2021 SURGEON: Petar Guzman MD PREOPERATIVE DIAGNOSIS: Gastrointestinal bleeding. POSTOPERATIVE DIAGNOSES: 1. Duodenitis. 2. Hiatal hernia. 3. Slight descending and sigmoid colon irritation and diverticulosis. OPERATION PERFORMED: Esophagogastroduodenoscopy and colonoscopy. ANESTHESIA: Monitored anesthesia care. ESTIMATED BLOOD LOSS: Minimal. COMPLICATIONS: None. FINDINGS: We found duodenitis in the first and proximal second portion of duodenum. These areas were biopsied. The biopsy from the first portion of duodenum continued to ooze, and 3 clips were applied to stop the oozing, and there was slight irritation of the colon, likely due to prep in the descending and sigmoid. INDICATION AND CONSENT: The patient is a 65-year-old male who presented to the emergency department 3 days ago with GI bleeding. The patient was stable, was sent home to follow up as an outpatient, but continued to have symptoms from the bleeding, returned to the ED yesterday. I saw the patient, recommended to proceed with EGD and colonoscopy for diagnosis. Risks, benefits, and alternatives were discussed and informed consent was obtained. The patient was admitted overnight. Hemoglobin this morning was 7.3 down from 8. We proceeded with EGD and colonoscopy. DETAILS OF PROCEDURE: The patient was taken to the procedure room, placed in left lateral decubitus position. Time-out was performed and monitored anesthesia care was induced. Began with an EGD. The scope was inserted into the mouth, taken all the way to the second portion of duodenum. The esophagus was normal. The patient had a medium-sized hiatal hernia. The entire stomach appeared normal. Upon entering the duodenum, the duodenal bulb was normal, but the first portion of duodenum had duodenitis, marked by erythema. There was no active bleeding at this point. We went into the second portion of duodenum. The proximal part of it also had some mild duodenitis. Biopsies were taken from the first and proximal second portion of duodenum. We advanced the scope toward the third portion of duodenum. The distal second and third portion of duodenum appeared normal. There were no ulcers. Upon withdrawal, we noted that the biopsy sites at the first portion of duodenum were still actively bleeding indicating irritation and possibly this was the area of bleeding for the patient. Therefore, we decided to put clips at this point at this biopsy site. Three clips were placed with good results leading to stoppage of bleeding. There was slight oozing also at the separate area of the duodenitis in the second portion of duodenum. This stopped promptly within seconds. We withdrew the scope back into the stomach and suctioned the air. After making sure there was no active bleeding, withdrew the scope, went back into the esophagus and concluded this portion of the procedure. We started the colonoscopy. Perianal exam was significant for external skin tags. Digital rectal exam was not significant. The scope was inserted and taken all the way to the cecum. Throughout the colon, the residual prep fluid was clear. There were no indications of any bloody fluid or stool. The appendiceal orifice and ileocecal valve were photographed and we examined the colon all the way out. There was slight irritation of the left colon suggestive of prep irritation in the descending and sigmoid colon. One of these areas was biopsied. These were secular discrete patches of irritation. There was some diverticulosis in the descending and sigmoid colon, medium-sized in the rectum. We did retroflexion which was normal. Air was suctioned out and procedure was concluded. Therefore, from this evaluation, I believe the patient may have bled from the duodenitis in the first portion of duodenum. We will monitor the patient in the hospital until hemoglobin is stable. MMODAL /[id number] OPAL
--- NOTE | 2021-02-07 10:06 | PCM.PN ---
- General Info Date of Service: 02/07/21 Admission Dx/Problem (Free Text): Admission Diagnosis/Problem Admission Diagnosis/Problem GI bleed not requiring more than 4 units of blood in 24 hours, ICU, or surgery Subjective Update: Patient completed prep overnight. No bloody stools during prep. still weak today. Functional Status: Reports: Pain Controlled, Tolerating Diet, Urinating - Review of Systems General: Reports: No Symptoms HEENT: Reports: No Symptoms Pulmonary: Reports: No Symptoms Cardiovascular: Reports: No Symptoms Gastrointestinal: Reports: Melena Genitourinary: Reports: No Symptoms Musculoskeletal: Reports: No Symptoms - Patient Data Vitals - Most Recent: Last Vital Signs Temp 98.4 F 02/07/21 09:45 Pulse 92 02/07/21 09:45 Resp 16 02/07/21 09:45 BP 100/50 L 02/07/21 09:45 Pulse Ox 95 02/07/21 09:45 Weight - Most Recent: 100.062 kg I&O - Last 24 Hours: Intake & Output 02/06/21 02/07/21 02/07/21 22:59 06:59 14:59 Intake Total 5100 200 Balance 5100 200 Lab Results Last 24 Hours: Laboratory Results - last 24 hr 02/06/21 02/06/21 02/06/21 Range/Units 16:00 16:00 16:00 WBC 6.79 (4.23-9.07) K/mm3 RBC 2.61 L (4.63-6.08) M/mm3 Hgb 8.2 L D (13.7-17.5) gm/dl Hct 24.7 L (40.1-51.0) % MCV 94.6 H (79.0-92.2) fl MCH 31.4 (25.7-32.2) pg MCHC 33.2 (32.2-35.5) g/dl RDW Std Deviation 45.1 H (35.1-43.9) fL Plt Count 156 L D (163-337) K/mm3 MPV 9.8 (9.4-12.3) fl Neut % (Auto) 58.4 (34.0-67.9) % Lymph % (Auto) 27.7 (21.8-53.1) % [place] % (Auto) 11.6 (5.3-12.2) % Eos % (Auto) 1.8 (0.8-7.0) Baso % (Auto) 0.4 (0.1-1.2) % Neut # (Auto) 3.96 (1.78-5.38) K/mm3 Lymph # (Auto) 1.88 (1.32-3.57) K/mm3 [place] # (Auto) 0.79 (0.30-0.82) K/mm3 Eos # (Auto) 0.12 (0.04-0.54) K/mm3 Baso # (Auto) 0.03 (0.01-0.08) K/mm3 Manual Slide Review Sodium 137 (136-145) mEq/L Potassium 3.8 (3.5-5.1) mEq/L Chloride 105 (98-107) mEq/L Carbon Dioxide 25 (21-32) mEq/L Anion Gap 10.8 (5-15) BUN 29 H D (7-18) mg/dL Creatinine 1.3 (0.7-1.3) mg/dL Est Cr Clr Drug Dosing 56.93 mL/min Estimated GFR (MDRD) 55 (>60) mL/min BUN/Creatinine Ratio 22.3 H (14-18) Glucose 113 H (70-99) mg/dL Calcium 7.7 L (8.5-10.1) mg/dL Phosphorus (2.6-4.7) mg/dL Magnesium (1.8-2.4) mg/dL Total Bilirubin 0.5 (0.2-1.0) mg/dL AST 24 (15-37) U/L ALT 42 (16-63) U/L Alkaline Phosphatase 61 (46-116) U/L Total Protein 5.7 L (6.4-8.2) g/dl Albumin 3.1 L (3.4-5.0) g/dl Globulin 2.6 gm/dL Albumin/Globulin Ratio 1.2 (1-2) SARS-CoV-2 RNA (ONOFRE) (NEGATIVE) Blood Type A POSITIVE Gel Antibody Screen Negative Crossmatch See Detail 02/06/21 02/07/21 02/07/21 Range/Units 16:55 05:30 05:30 WBC 4.69 (4.23-9.07) K/mm3 RBC 2.31 L (4.63-6.08) M/mm3 Hgb 7.3 L* (13.7-17.5) gm/dl Hct 22.2 L (40.1-51.0) % MCV 96.1 H (79.0-92.2) fl MCH 31.6 (25.7-32.2) pg MCHC 32.9 (32.2-35.5) g/dl RDW Std Deviation 44.6 H (35.1-43.9) fL Plt Count 114 L (163-337) K/mm3 MPV 9.8 (9.4-12.3) fl Neut % (Auto) 55.0 (34.0-67.9) % Lymph % (Auto) 33.3 (21.8-53.1) % [place] % (Auto) 9.6 (5.3-12.2) % Eos % (Auto) 1.5 (0.8-7.0) Baso % (Auto) 0.4 (0.1-1.2) % Neut # (Auto) 2.58 (1.78-5.38) K/mm3 Lymph # (Auto) 1.56 (1.32-3.57) K/mm3 [place] # (Auto) 0.45 (0.30-0.82) K/mm3 Eos # (Auto) 0.07 (0.04-0.54) K/mm3 Baso # (Auto) 0.02 (0.01-0.08) K/mm3 Manual Slide Review Abnormal smear Sodium 142 (136-145) mEq/L Potassium 4.0 (3.5-5.1) mEq/L Chloride 109 H (98-107) mEq/L Carbon Dioxide 25 (21-32) mEq/L Anion Gap 12.0 (5-15) BUN 20 H (7-18) mg/dL Creatinine 1.0 (0.7-1.3) mg/dL Est Cr Clr Drug Dosing 74.01 mL/min Estimated GFR (MDRD) > 60 (>60) mL/min BUN/Creatinine Ratio 20.0 H (14-18) Glucose 99 (70-99) mg/dL Calcium 7.7 L (8.5-10.1) mg/dL Phosphorus 3.1 (2.6-4.7) mg/dL Magnesium 1.7 L (1.8-2.4) mg/dL Total Bilirubin (0.2-1.0) mg/dL AST (15-37) U/L ALT (16-63) U/L Alkaline Phosphatase (46-116) U/L Total Protein (6.4-8.2) g/dl Albumin (3.4-5.0) g/dl Globulin gm/dL Albumin/Globulin Ratio (1-2) SARS-CoV-2 RNA (ONOFRE) Negative (NEGATIVE) Blood Type Gel Antibody Screen Crossmatch Med Orders - Current: Current Medications Acetaminophen (Acetaminophen 325 Mg Tab) 650 mg PO Q4H PRN PRN Reason: Pain (Mild 1-3)/fever Atorvastatin Calcium (Atorvastatin 40 Mg Tab) 40 mg PO BEDTIME [facility] Lactated Ringer's (Ringers, Lactated) 1,000 mls @ 75 mls/hr IV ASDIRECTED [facility] Last Admin: 02/07/21 03:05 Dose: 125 mls/hr Documented by: Ondansetron HCl (Ondansetron 4 Mg Tab.Dis) 4 mg PO Q4H PRN PRN Reason: nausea, able to take PO Ondansetron HCl (Ondansetron 4 Mg/2 Ml Sdv) 4 mg IV Q4H PRN PRN Reason: Nausea/Vomiting Ondansetron HCl (Ondansetron 4 Mg/2 Ml Sdv) 4 mg IVPUSH ONETIME PRN PRN Reason: Nausea/Vomiting Pantoprazole Sodium (Pantoprazole 40 Mg Vial) 40 mg IVPUSH Q12H [facility] Last Admin: 02/07/21 04:29 Dose: 40 mg Documented by: Sodium Chloride (Sodium Chloride 0.9% 10 Ml Syringe) 10 ml FLUSH ASDIRECTED PRN PRN Reason: Keep Vein Open Last Admin: 02/06/21 16:00 Dose: 10 ml Documented by: Discontinued Medications Ephedrine Sulfate (Ephedrine 50 Mg/Ml Sdv) Confirm Administered Dose 50 mg .ROUTE .STK-MED ONE Stop: 02/07/21 07:13 Fentanyl (Fentanyl 100 Mcg/2 Ml Sdv) Confirm Administered Dose 100 mcg .ROUTE . STK-MED ONE Stop: 02/07/21 07:12 Lidocaine HCl (Xylocaine-Mpf 1%) Confirm Administered Dose 4 mls @ as directed .ROUTE .STK-MED ONE Stop: 02/07/21 07:11 Lactated Ringer's (Ringers, Lactated) Confirm Administered Dose 1,000 mls @ as directed .ROUTE .STK-MED ONE Stop: 02/07/21 07:11 Magnesium Sulfate 2 gm/ Premix 50 mls @ 25 mls/hr IV Q1H [facility] Last Admin: 02/07/21 08:07 Dose: Not Given Documented by: Magnesium Sulfate 2 gm/ Premix 50 mls @ 25 mls/hr IV ONETIME ONE Stop: 02/07/21 09:52 Last Admin: 02/07/21 09:54 Dose: 25 mls/hr Documented by: Lactated Ringer's (Ringers, Lactated) Confirm Administered Dose 1,000 mls @ as directed .ROUTE .STK-MED ONE Stop: 02/07/21 08:05 Lactated Ringer's (Ringers, Lactated) Confirm Administered Dose 1,000 mls @ as directed .ROUTE .STK-MED ONE Stop: 02/07/21 09:01 Miscellaneous Medication (Phenylephrine Hcl In 0.9% Nacl 1 Mg/10 Ml Syringe) Confirm Administered Dose 1 mg .ROUTE .STK-MED ONE Stop: 02/07/21 07:14 Pantoprazole Sodium (Pantoprazole 40 Mg Vial) 40 mg IVPUSH ONETIME ONE Stop: 02/06/21 16:24 Last Admin: 02/06/21 16:52 Dose: 40 mg Documented by: Polyethylene Glycol/Electrolytes (Polyethylene Glycol/Electrolytes 4,000 Ml Bot tle) 4,000 ml PO ONETIME ONE Stop: 02/06/21 18:01 Last Admin: 02/06/21 18:57 Dose: 1 each Documented by: Propofol (Propofol 200 Mg/20 Ml Sdv) Confirm Administered Dose 400 mg .ROUTE .STK-MED ONE Stop: 02/07/21 07:12 Propofol (Propofol 200 Mg/20 Ml Sdv) Confirm Administered Dose 200 mg .ROUTE .STK-MED ONE Stop: 02/07/21 08:36 - Exam General: Alert, Oriented, Cooperative Lungs: Clear to Auscultation, Normal Respiratory Effort Cardiovascular: Regular Rate, Regular Rhythm GI/Abdominal Exam: Soft, Non-Tender, No Organomegaly, No Distention - Patient Data Lab Results Last 24 hrs: Laboratory Results - last 24 hr 02/06/21 02/06/21 02/06/21 Range/Units 16:00 16:00 16:00 WBC 6.79 (4.23-9.07) K/mm3 RBC 2.61 L (4.63-6.08) M/mm3 Hgb 8.2 L D (13.7-17.5) gm/dl Hct 24.7 L (40.1-51.0) % MCV 94.6 H (79.0-92.2) fl MCH 31.4 (25.7-32.2) pg MCHC 33.2 (32.2-35.5) g/dl RDW Std Deviation 45.1 H (35.1-43.9) fL Plt Count 156 L D (163-337) K/mm3 MPV 9.8 (9.4-12.3) fl Neut % (Auto) 58.4 (34.0-67.9) % Lymph % (Auto) 27.7 (21.8-53.1) % [place] % (Auto) 11.6 (5.3-12.2) % Eos % (Auto) 1.8 (0.8-7.0) Baso % (Auto) 0.4 (0.1-1.2) % Neut # (Auto) 3.96 (1.78-5.38) K/mm3 Lymph # (Auto) 1.88 (1.32-3.57) K/mm3 [place] # (Auto) 0.79 (0.30-0.82) K/mm3 Eos # (Auto) 0.12 (0.04-0.54) K/mm3 Baso # (Auto) 0.03 (0.01-0.08) K/mm3 Manual Slide Review Sodium 137 (136-145) mEq/L Potassium 3.8 (3.5-5.1) mEq/L Chloride 105 (98-107) mEq/L Carbon Dioxide 25 (21-32) mEq/L Anion Gap 10.8 (5-15) BUN 29 H D (7-18) mg/dL Creatinine 1.3 (0.7-1.3) mg/dL Est Cr Clr Drug Dosing 56.93 mL/min Estimated GFR (MDRD) 55 (>60) mL/min BUN/Creatinine Ratio 22.3 H (14-18) Glucose 113 H (70-99) mg/dL Calcium 7.7 L (8.5-10.1) mg/dL Phosphorus (2.6-4.7) mg/dL Magnesium (1.8-2.4) mg/dL Total Bilirubin 0.5 (0.2-1.0) mg/dL AST 24 (15-37) U/L ALT 42 (16-63) U/L Alkaline Phosphatase 61 (46-116) U/L Total Protein 5.7 L (6.4-8.2) g/dl Albumin 3.1 L (3.4-5.0) g/dl Globulin 2.6 gm/dL Albumin/Globulin Ratio 1.2 (1-2) SARS-CoV-2 RNA (ONOFRE) (NEGATIVE) Blood Type A POSITIVE Gel Antibody Screen Negative Crossmatch See Detail 02/06/21 02/07/21 02/07/21 Range/Units 16:55 05:30 05:30 WBC 4.69 (4.23-9.07) K/mm3 RBC 2.31 L (4.63-6.08) M/mm3 Hgb 7.3 L* (13.7-17.5) gm/dl Hct 22.2 L (40.1-51.0) % MCV 96.1 H (79.0-92.2) fl MCH 31.6 (25.7-32.2) pg MCHC 32.9 (32.2-35.5) g/dl RDW Std Deviation 44.6 H (35.1-43.9) fL Plt Count 114 L (163-337) K/mm3 MPV 9.8 (9.4-12.3) fl Neut % (Auto) 55.0 (34.0-67.9) % Lymph % (Auto) 33.3 (21.8-53.1) % [place] % (Auto) 9.6 (5.3-12.2) % Eos % (Auto) 1.5 (0.8-7.0) Baso % (Auto) 0.4 (0.1-1.2) % Neut # (Auto) 2.58 (1.78-5.38) K/mm3 Lymph # (Auto) 1.56 (1.32-3.57) K/mm3 [place] # (Auto) 0.45 (0.30-0.82) K/mm3 Eos # (Auto) 0.07 (0.04-0.54) K/mm3 Baso # (Auto) 0.02 (0.01-0.08) K/mm3 Manual Slide Review Abnormal smear Sodium 142 (136-145) mEq/L Potassium 4.0 (3.5-5.1) mEq/L Chloride 109 H (98-107) mEq/L Carbon Dioxide 25 (21-32) mEq/L Anion Gap 12.0 (5-15) BUN 20 H (7-18) mg/dL Creatinine 1.0 (0.7-1.3) mg/dL Est Cr Clr Drug Dosing 74.01 mL/min Estimated GFR (MDRD) > 60 (>60) mL/min BUN/Creatinine Ratio 20.0 H (14-18) Glucose 99 (70-99) mg/dL Calcium 7.7 L (8.5-10.1) mg/dL Phosphorus 3.1 (2.6-4.7) mg/dL Magnesium 1.7 L (1.8-2.4) mg/dL Total Bilirubin (0.2-1.0) mg/dL AST (15-37) U/L ALT (16-63) U/L Alkaline Phosphatase (46-116) U/L Total Protein (6.4-8.2) g/dl Albumin (3.4-5.0) g/dl Globulin gm/dL Albumin/Globulin Ratio (1-2) SARS-CoV-2 RNA (ONOFRE) Negative (NEGATIVE) Blood Type Gel Antibody Screen Crossmatch Result Diagrams: 02/07/21 05:30 02/07/21 05:30 Sepsis Event Note - Evaluation Sepsis Screening Result: No Definite Risk - Focused Exam Vital Signs: Vital Signs Temp Temp Pulse Pulse Resp BP BP 02/07/21 09:45 98.4 F 92 16 02/07/21 09:30 88 20 02/07/21 09:21 02/07/21 09:15 99.8 F 93 16 114/63 02/07/21 08:59 99.5 F 104 H 12 99/54 L 02/07/21 04:33 98.2 F 88 16 103/53 L BP Pulse Ox Pulse Ox 02/07/21 09:45 100/50 L 95 02/07/21 09:30 94/50 L 94 L 02/07/21 09:21 97 02/07/21 09:15 97 02/07/21 08:59 93 L 93 L 02/07/21 04:33 95 - Problem List Review Problem List Initiated/Reviewed/Updated: No - My Orders Last 24 Hours: My Active Orders 02/06/21 17:08 Intake and Output [RC] 04,16 Oxygen Therapy [RC] PRN Up ad Tracey [RC] QSHIFT VTE/DVT Education [RC] DAILY Vital Signs [RC] Q4HR Acetaminophen [TylenoL] 650 mg PO Q4H PRN Ondansetron [Zofran ODT] 4 mg PO Q4H PRN Ondansetron [Zofran] 4 mg IV Q4H PRN VTE Pharmacological Contraindications [AST] Per Unit Routine Resuscitation Status Routine 02/06/21 17:09 Sequential Compression Device [OM.PC] Per Unit Routine 02/06/21 17:10 Antiembolic Devices [RC] BID 02/06/21 17:15 Lactated Ringers [Ringers, Lactated] 1,000 ml IV ASDIRECTED 02/07/21 05:00 Pantoprazole [ProTONIX IV] 40 mg IVPUSH Q12H 02/07/21 08:00 Schedule Procedure [COMM] Routine 02/07/21 Lunch Clear Liquid Diet [DIET] 02/07/21 14:00 CBC WITH AUTO DIFF [HEME] Timed 02/07/21 21:00 atorvaSTATin [Lipitor] 40 mg PO BEDTIME 02/08/21 05:11 BASIC METABOLIC PANEL,BMP [CHEM] AM CBC WITH AUTO DIFF [HEME] AM MAGNESIUM [CHEM] AM PHOSPHORUS [CHEM] AM 02/09/21 05:11 BASIC METABOLIC PANEL,BMP [CHEM] AM CBC WITH AUTO DIFF [HEME] AM MAGNESIUM [CHEM] AM PHOSPHORUS [CHEM] AM 02/10/21 05:11 CBC WITH AUTO DIFF [HEME] AM 02/11/21 05:11 CBC WITH AUTO DIFF [HEME] AM - Assessment Assessment:: HD1 s/p GI bleeding. EGD/Colonoscopy performed. EGD noted duodenitis in the 1st portion of duodenum, biopsied, oozed and clipped. Colon no stigmata of bleeding. - Plan Plan:: 1. GI bleeding, likely due to duodenitis - protonix infusion - CBC at 1400, if below 7, transfuse - Clears now - IVF to 75 2. HTN - hold home meds at this time to continue to monitor for bleeding HLD - restart artovastatin
[2021-02-07] MEDS ORDERED: atorvaSTATin 40 MG Tab PO SCH (21:00)
[2021-02-08] MEDS: Pantoprazole 40 MG Vial IVPUSH SCH (04:05)
[2021-02-08] MEDS: Lactated Ringers 1,000 ML IV SCH (04:27)
--- NOTE | 2021-02-08 09:30 | PCM.PN ---
- General Info Date of Service: 02/08/21 Admission Dx/Problem (Free Text): Admission Diagnosis/Problem Admission Diagnosis/Problem GI bleed not requiring more than 4 units of blood in 24 hours, ICU, or surgery Subjective Update: Patient feels much better today. no issues, Hgb is up this AM Functional Status: Reports: Tolerating Diet, Ambulating, Urinating - Review of Systems General: Reports: No Symptoms HEENT: Reports: No Symptoms Pulmonary: Reports: No Symptoms Cardiovascular: Reports: No Symptoms Gastrointestinal: Reports: No Symptoms Genitourinary: Reports: No Symptoms Musculoskeletal: Reports: No Symptoms Skin: Reports: No Symptoms Neurological: Reports: No Symptoms - Patient Data Vitals - Most Recent: Last Vital Signs Temp 98.2 F 02/08/21 04:09 Pulse 88 02/08/21 04:09 Resp 16 02/08/21 04:09 BP 123/67 02/08/21 04:09 Pulse Ox 96 02/08/21 04:09 Weight - Most Recent: 100.108 kg I&O - Last 24 Hours: Intake & Output 02/07/21 02/08/21 02/08/21 22:59 06:59 14:59 Intake Total 1775 1300 Balance 1775 1300 Lab Results Last 24 Hours: Laboratory Results - last 24 hr 02/07/21 02/08/21 02/08/21 Range/Units 14:30 05:10 05:10 WBC 4.04 L 5.11 (4.23-9.07) K/mm3 RBC 2.30 L 2.41 L (4.63-6.08) M/mm3 Hgb 7.3 L* 7.7 L (13.7-17.5) gm/dl Hct 22.2 L 23.3 L (40.1-51.0) % MCV 96.5 H 96.7 H (79.0-92.2) fl MCH 31.7 32.0 (25.7-32.2) pg MCHC 32.9 33.0 (32.2-35.5) g/dl RDW Std Deviation 45.1 H 44.9 H (35.1-43.9) fL Plt Count 112 L 132 L (163-337) K/mm3 MPV 9.5 10.1 (9.4-12.3) fl Neut % (Auto) 56.3 61.6 (34.0-67.9) % Lymph % (Auto) 33.9 28.0 (21.8-53.1) % [place] % (Auto) 8.4 8.4 (5.3-12.2) % Eos % (Auto) 1.2 1.6 (0.8-7.0) Baso % (Auto) 0.2 0.2 (0.1-1.2) % Neut # (Auto) 2.27 3.15 (1.78-5.38) K/mm3 Lymph # (Auto) 1.37 1.43 (1.32-3.57) K/mm3 [place] # (Auto) 0.34 0.43 (0.30-0.82) K/mm3 Eos # (Auto) 0.05 0.08 (0.04-0.54) K/mm3 Baso # (Auto) 0.01 0.01 (0.01-0.08) K/mm3 Manual Slide Review Abnormal smear Abnormal smear Sodium 136 (136-145) mEq/L Potassium 3.6 (3.5-5.1) mEq/L Chloride 103 (98-107) mEq/L Carbon Dioxide 29 (21-32) mEq/L Anion Gap 7.6 (5-15) BUN 9 (7-18) mg/dL Creatinine 1.0 (0.7-1.3) mg/dL Est Cr Clr Drug Dosing 74.01 mL/min Estimated GFR (MDRD) > 60 (>60) mL/min BUN/Creatinine Ratio 9.0 L (14-18) Glucose 105 H (70-99) mg/dL Calcium 8.0 L (8.5-10.1) mg/dL Phosphorus 3.7 (2.6-4.7) mg/dL Magnesium 2.0 (1.8-2.4) mg/dL Med Orders - Current: Current Medications Acetaminophen (Acetaminophen 325 Mg Tab) 650 mg PO Q4H PRN PRN Reason: Pain (Mild 1-3)/fever Atorvastatin Calcium (Atorvastatin 40 Mg Tab) 40 mg PO BEDTIME [facility] Last Admin: 02/07/21 20:32 Dose: 40 mg Documented by: Ondansetron HCl (Ondansetron 4 Mg Tab.Dis) 4 mg PO Q4H PRN PRN Reason: nausea, able to take PO Ondansetron HCl (Ondansetron 4 Mg/2 Ml Sdv) 4 mg IV Q4H PRN PRN Reason: Nausea/Vomiting Ondansetron HCl (Ondansetron 4 Mg/2 Ml Sdv) 4 mg IVPUSH ONETIME PRN PRN Reason: Nausea/Vomiting Pantoprazole Sodium (Pantoprazole 40 Mg Vial) 40 mg IVPUSH Q12H [facility] Last Admin: 02/08/21 04:05 Dose: 40 mg Documented by: Sodium Chloride (Sodium Chloride 0.9% 10 Ml Syringe) 10 ml FLUSH ASDIRECTED PRN PRN Reason: Keep Vein Open Last Admin: 02/06/21 16:00 Dose: 10 ml Documented by: Discontinued Medications Ephedrine Sulfate (Ephedrine 50 Mg/Ml Sdv) Confirm Administered Dose 50 mg .ROUTE .STK-MED ONE Stop: 02/07/21 07:13 Fentanyl (Fentanyl 100 Mcg/2 Ml Sdv) Confirm Administered Dose 100 mcg .ROUTE .STK-MED ONE Stop: 02/07/21 07:12 Lactated Ringer's (Ringers, Lactated) 1,000 mls @ 75 mls/hr IV ASDIRECTED [facility] Last Admin: 02/08/21 04:27 Dose: 75 mls/hr Documented by: Lidocaine HCl (Xylocaine-Mpf 1%) Confirm Administered Dose 4 mls @ as directed .ROUTE .STK-MED ONE Stop: 02/07/21 07:11 Lactated Ringer's (Ringers, Lactated) Confirm Administered Dose 1,000 mls @ as directed .ROUTE .STK-MED ONE Stop: 02/07/21 07:11 Magnesium Sulfate 2 gm/ Premix 50 mls @ 25 mls/hr IV Q1H [facility] Last Admin: 02/07/21 08:07 Dose: Not Given Documented by: Magnesium Sulfate 2 gm/ Premix 50 mls @ 25 mls/hr IV ONETIME ONE Stop: 02/07/21 09:52 Last Admin: 02/07/21 09:54 Dose: 25 mls/hr Documented by: Lactated Ringer's (Ringers, Lactated) Confirm Administered Dose 1,000 mls @ as directed .ROUTE .STK-MED ONE Stop: 02/07/21 08:05 Lactated Ringer's (Ringers, Lactated) Confirm Administered Dose 1,000 mls @ as directed .ROUTE .STK-MED ONE Stop: 02/07/21 09:01 Miscellaneous Medication (Phenylephrine Hcl In 0.9% Nacl 1 Mg/10 Ml Syringe) Confirm Administered Dose 1 mg .ROUTE .STK-MED ONE Stop: 02/07/21 07:14 Pantoprazole Sodium (Pantoprazole 40 Mg Vial) 40 mg IVPUSH ONETIME ONE Stop: 02/06/21 16:24 Last Admin: 02/06/21 16:52 Dose: 40 mg Documented by: Polyethylene Glycol/Electrolytes (Polyethylene Glycol/Electrolytes 4,000 Ml Bottle) 4,000 ml PO ONETIME ONE Stop: 02/06/21 18:01 Last Admin: 02/06/21 18:57 Dose: 1 each Documented by: Propofol (Propofol 200 Mg/20 Ml Sdv) Confirm Administered Dose 400 mg .ROUTE .STK-MED ONE Stop: 02/07/21 07:12 Propofol (Propofol 200 Mg/20 Ml Sdv) Confirm Administered Dose 200 mg .ROUTE .STK-MED ONE Stop: 02/07/21 08:36 - Exam General: Alert, Oriented, Cooperative Lungs: Clear to Auscultation, Normal Respiratory Effort Cardiovascular: Regular Rate, Regular Rhythm GI/Abdominal Exam: Soft, Non-Tender, No Organomegaly, No Distention - Patient Data Lab Results Last 24 hrs: Laboratory Results - last 24 hr 02/07/21 02/08/21 02/08/21 Range/Units 14:30 05:10 05:10 WBC 4.04 L 5.11 (4.23-9.07) K/mm3 RBC 2.30 L 2.41 L (4.63-6.08) M/mm3 Hgb 7.3 L* 7.7 L (13.7-17.5) gm/dl Hct 22.2 L 23.3 L (40.1-51.0) % MCV 96.5 H 96.7 H (79.0-92.2) fl MCH 31.7 32.0 (25.7-32.2) pg MCHC 32.9 33.0 (32.2-35.5) g/dl RDW Std Deviation 45.1 H 44.9 H (35.1-43.9) fL Plt Count 112 L 132 L (163-337) K/mm3 MPV 9.5 10.1 (9.4-12.3) fl Neut % (Auto) 56.3 61.6 (34.0-67.9) % Lymph % (Auto) 33.9 28.0 (21.8-53.1) % [place] % (Auto) 8.4 8.4 (5.3-12.2) % Eos % (Auto) 1.2 1.6 (0.8-7.0) Baso % (Auto) 0.2 0.2 (0.1-1.2) % Neut # (Auto) 2.27 3.15 (1.78-5.38) K/mm3 Lymph # (Auto) 1.37 1.43 (1.32-3.57) K/mm3 [place] # (Auto) 0.34 0.43 (0.30-0.82) K/mm3 Eos # (Auto) 0.05 0.08 (0.04-0.54) K/mm3 Baso # (Auto) 0.01 0.01 (0.01-0.08) K/mm3 Manual Slide Review Abnormal smear Abnormal smear Sodium 136 (136-145) mEq/L Potassium 3.6 (3.5-5.1) mEq/L Chloride 103 (98-107) mEq/L Carbon Dioxide 29 (21-32) mEq/L Anion Gap 7.6 (5-15) BUN 9 (7-18) mg/dL Creatinine 1.0 (0.7-1.3) mg/dL Est Cr Clr Drug Dosing 74.01 mL/min Estimated GFR (MDRD) > 60 (>60) mL/min BUN/Creatinine Ratio 9.0 L (14-18) Glucose 105 H (70-99) mg/dL Calcium 8.0 L (8.5-10.1) mg/dL Phosphorus 3.7 (2.6-4.7) mg/dL Magnesium 2.0 (1.8-2.4) mg/dL Result Diagrams: 02/08/21 05:10 02/08/21 05:10 Sepsis Event Note - Evaluation Sepsis Screening Result: No Definite Risk - Focused Exam Vital Signs: Vital Signs Temp Pulse Resp BP Pulse Ox 02/08/21 04:09 98.2 F 88 16 123/67 96 - Problem List Review Problem List Initiated/Reviewed/Updated: No - My Orders Last 24 Hours: My Active Orders 02/07/21 21:00 atorvaSTATin [Lipitor] 40 mg PO BEDTIME 02/08/21 Lunch Regular Diet [DIET] 02/09/21 05:11 BASIC METABOLIC PANEL,BMP [CHEM] AM CBC WITH AUTO DIFF [HEME] AM MAGNESIUM [CHEM] AM PHOSPHORUS [CHEM] AM 02/10/21 05:11 CBC WITH AUTO DIFF [HEME] AM 02/11/21 05:11 CBC WITH AUTO DIFF [HEME] AM - Assessment Assessment:: HD2 s/p GI bleeding. EGD/Colonoscopy performed. EGD noted duodenitis in the 1st portion of duodenum, biopsied, oozed and clipped. Colon no stigmata of bleeding. - Plan Plan:: 1. GI bleeding, likely due to duodenitis - Protonix 40 BID - Hgb up to 7.7 from 7.3 - reg diet - dc IVF 2. HTN - hold home meds at this time to continue to monitor for bleeding HLD - restart artovastatin Dispo: Home today
--- NOTE | 2021-02-08 09:55 | PCM.DCSUM1 ---
Discharge Summary - Hospital Course Free Text/Narrative:: Patient had a Gi bleeding. EGD/Colonoscopy were performed and duodenitis was found and an area of bleeding after biopsy was found and clipped. Patient remained stable and did not require a blood transfusion. He will be discharged to home with follow up in 2 weeks. Diagnosis: Stroke: No - Discharge Data Discharge Date: 02/08/21 Discharge Disposition: Home, Self-Care 01 Condition: Good - Referral to Home Health Primary Care Physician: Marcelino Brian MD - Patient Instructions Diet: Heart Healthy Diet Activity: As Tolerated Driving: May Drive Today Showering/Bathing: December Shower Notify Provider of: Fever, Increased Pain, Nausea and/or Vomiting Other/Special Instructions: - Do not take Aspirin until hemoglobin has returned to normal range. - Hold Lisinopril until follow up with Dr. Guzman. - Continue to take Pantoprazole - Discharge Plan *PRESCRIPTION DRUG MONITORING PROGRAM REVIEWED*: Not Applicable *COPY OF PRESCRIPTION DRUG MONITORING REPORT IN PATIENT CARLOS: Not Applicable Prescriptions/Med Rec: Ferrous Sulfate 324 mg PO DAILY 30 Days #30 tablet. Home Medications: Home Meds Pantoprazole Sodium [Protonix] 40 mg PO BID #20 tablet. 02/04/21 [Rx] amLODIPine [Norvasc] 5 mg PO DAILY 02/04/21 [History] atorvaSTATin [Lipitor] 40 mg PO BEDTIME 02/04/21 [History] Ferrous Sulfate 324 mg PO DAILY 30 Days #30 tablet. 02/08/21 [Rx] Oxygen Therapy Mode: Room Air Referrals: Marcelino Brian MD [Primary Care Provider] - Petar Guzman MD [Physician] - (- Will check CBC Tuesday 02/13. - Follow up in 2 weeks) - Discharge Summary/Plan Comment DC Time >30 min.: Yes - General Info Date of Service: 02/08/21 Admission Dx/Problem (Free Text: Admission Diagnosis/Problem Admission Diagnosis/Problem GI bleed not requiring more than 4 units of blood in 24 hours, ICU, or surgery Subjective Update: Feeling well. no bloody stools Functional Status: Reports: Tolerating Diet, Ambulating, Urinating - Review of Systems General: Reports: No Symptoms HEENT: Reports: No Symptoms Pulmonary: Reports: No Symptoms Cardiovascular: Reports: No Symptoms Gastrointestinal: Reports: No Symptoms Genitourinary: Reports: No Symptoms Musculoskeletal: Reports: No Symptoms - Patient Data Vitals - Most Recent: Last Vital Signs Temp 98.2 F 02/08/21 04:09 Pulse 88 02/08/21 04:09 Resp 16 02/08/21 04:09 BP 123/67 02/08/21 04:09 Pulse Ox 96 02/08/21 04:09 Weight - Most Recent: 100.108 kg I&O - Last 24 hours: Intake & Output 02/07/21 02/08/21 02/08/21 22:59 06:59 14:59 Intake Total 2054 1300 Balance 2054 1300 Lab Results - Last 24 hrs: Laboratory Results - last 24 hr 02/07/21 02/08/21 02/08/21 Range/Units 14:30 05:10 05:10 WBC 4.04 L 5.11 (4.23-9.07) K/mm3 RBC 2.30 L 2.41 L (4.63-6.08) M/mm3 Hgb 7.3 L* 7.7 L (13.7-17.5) gm/dl Hct 22.2 L 23.3 L (40.1-51.0) % MCV 96.5 H 96.7 H (79.0-92.2) fl MCH 31.7 32.0 (25.7-32.2) pg MCHC 32.9 33.0 (32.2-35.5) g/dl RDW Std Deviation 45.1 H 44.9 H (35.1-43.9) fL Plt Count 112 L 132 L (163-337) K/mm3 MPV 9.5 10.1 (9.4-12.3) fl Neut % (Auto) 56.3 61.6 (34.0-67.9) % Lymph % (Auto) 33.9 28.0 (21.8-53.1) % Jenkins % (Auto) 8.4 8.4 (5.3-12.2) % Eos % (Auto) 1.2 1.6 (0.8-7.0) Baso % (Auto) 0.2 0.2 (0.1-1.2) % Neut # (Auto) 2.27 3.15 (1.78-5.38) K/mm3 Lymph # (Auto) 1.37 1.43 (1.32-3.57) K/mm3 Jenkins # (Auto) 0.34 0.43 (0.30-0.82) K/mm3 Eos # (Auto) 0.05 0.08 (0.04-0.54) K/mm3 Baso # (Auto) 0.01 0.01 (0.01-0.08) K/mm3 Manual Slide Review Abnormal smear Abnormal smear Sodium 136 (136-145) mEq/L Potassium 3.6 (3.5-5.1) mEq/L Chloride 103 (98-107) mEq/L Carbon Dioxide 29 (21-32) mEq/L Anion Gap 7.6 (5-15) BUN 9 (7-18) mg/dL Creatinine 1.0 (0.7-1.3) mg/dL Est Cr Clr Drug Dosing 74.01 mL/min Estimated GFR (MDRD) > 60 (>60) mL/min BUN/Creatinine Ratio 9.0 L (14-18) Glucose 105 H (70-99) mg/dL Calcium 8.0 L (8.5-10.1) mg/dL Phosphorus 3.7 (2.6-4.7) mg/dL Magnesium 2.0 (1.8-2.4) mg/dL Med Orders - Current: Current Medications Acetaminophen (Acetaminophen 325 Mg Tab) 650 mg PO Q4H PRN PRN Reason: Pain (Mild 1-3)/fever Atorvastatin Calcium (Atorvastatin 40 Mg Tab) 40 mg PO BEDTIME [facility] Last Admin: 02/07/21 20:32 Dose: 40 mg Documented by: Ondansetron HCl (Ondansetron 4 Mg Tab.Dis) 4 mg PO Q4H PRN PRN Reason: nausea, able to take PO Ondansetron HCl (Ondansetron 4 Mg/2 Ml Sdv) 4 mg IV Q4H PRN PRN Reason: Nausea/Vomiting Ondansetron HCl (Ondansetron 4 Mg/2 Ml Sdv) 4 mg IVPUSH ONETIME PRN PRN Reason: Nausea/Vomiting Pantoprazole Sodium (Pantoprazole 40 Mg Vial) 40 mg IVPUSH Q12H [facility] Last Admin: 02/08/21 04:05 Dose: 40 mg Documented by: Sodium Chloride (Sodium Chloride 0.9% 10 Ml Syringe) 10 ml FLUSH ASDIRECTED PRN PRN Reason: Keep Vein Open Last Admin: 02/06/21 16:00 Dose: 10 ml Documented by: Discontinued Medications Ephedrine Sulfate (Ephedrine 50 Mg/Ml Sdv) Confirm Administered Dose 50 mg .ROUTE .STK-MED ONE Stop: 02/07/21 07:13 Fentanyl (Fentanyl 100 Mcg/2 Ml Sdv) Confirm Administered Dose 100 mcg .ROUTE .STK-MED ONE Stop: 02/07/21 07:12 Lactated Ringer's (Ringers, Lactated) 1,000 mls @ 75 mls/hr IV ASDIRECTED [facility] Last Admin: 02/08/21 04:27 Dose: 75 mls/hr Documented by: Lidocaine HCl (Xylocaine-Mpf 1%) Confirm Administered Dose 4 mls @ as directed .ROUTE .STK-MED ONE Stop: 02/07/21 07:11 Lactated Ringer's (Ringers, Lactated) Confirm Administered Dose 1,000 mls @ as directed .ROUTE .STK-MED ONE Stop: 02/07/21 07:11 Magnesium Sulfate 2 gm/ Premix 50 mls @ 25 mls/hr IV Q1H [facility] Last Admin: 02/07/21 08:07 Dose: Not Given Documented by: Magnesium Sulfate 2 gm/ Premix 50 mls @ 25 mls/hr IV ONETIME ONE Stop: 02/07/21 09:52 Last Admin: 02/07/21 09:54 Dose: 25 mls/hr Documented by: Lactated Ringer's (Ringers, Lactated) Confirm Administered Dose 1,000 mls @ as directed .ROUTE .STK-MED ONE Stop: 02/07/21 08:05 Lactated Ringer's (Ringers, Lactated) Confirm Administered Dose 1,000 mls @ as directed .ROUTE .STK-MED ONE Stop: 02/07/21 09:01 Miscellaneous Medication (Phenylephrine Hcl In 0.9% Nacl 1 Mg/10 Ml Syringe) Confirm Administered Dose 1 mg .ROUTE .STK-MED ONE Stop: 02/07/21 07:14 Pantoprazole Sodium (Pantoprazole 40 Mg Vial) 40 mg IVPUSH ONETIME ONE Stop: 02/06/21 16:24 Last Admin: 02/06/21 16:52 Dose: 40 mg Documented by: Polyethylene Glycol/Electrolytes (Polyethylene Glycol/Electrolytes 4,000 Ml Bottle) 4,000 ml PO ONETIME ONE Stop: 02/06/21 18:01 Last Admin: 02/06/21 18:57 Dose: 1 each Documented by: Propofol (Propofol 200 Mg/20 Ml Sdv) Confirm Administered Dose 400 mg .ROUTE .STK-MED ONE Stop: 02/07/21 07:12 Propofol (Propofol 200 Mg/20 Ml Sdv) Confirm Administered Dose 200 mg .ROUTE .STK-MED ONE Stop: 02/07/21 08:36 - Exam General: Reports: Alert, Oriented, Cooperative Lungs: Reports: Clear to Auscultation, Normal Respiratory Effort Cardiovascular: Reports: Regular Rate, Regular Rhythm GI/Abdominal Exam: Soft, Non-Tender, No Organomegaly, No Distention *Q Meaningful Use (DIS) - VTE *Q VTE Pharmacological Contraindications *Q: Active Hemorrhage
== END 2021-02-08 11:51 | disposition home or self-care (01) ==
LOC: JD.ED 15:02 → JD.MS 16:44
PROVIDERS: ADMIT Surgery; ATTEND Surgery
DX: K57.31 Diverticulosis of large intestine without perforation or abscess with bleeding (principal); K44.9 Diaphragmatic hernia without obstruction or gangrene; K29.80 Duodenitis without bleeding; K31.89 Other diseases of stomach and duodenum; E78.00 Pure hypercholesterolemia, unspecified; I10 Essential (primary) hypertension; Z90.49 Acquired absence of other specified parts of digestive tract; Z98.890 Other specified postprocedural states; Z87.891 Personal history of nicotine dependence; Z01.812 Encounter for preprocedural laboratory examination; Z20.822 Contact with and (suspected) exposure to COVID-19; Z79.899 Other long term (current) drug therapy; Z79.82 Long term (current) use of aspirin
CPT/HCPCS: 36415; 43239; 45380; 80048; 80053; 83735; 84100; 85025; 86850; 86900; 86901; 86922; 93005; 96365; 96366; 96375; 96376; 99285; A9270; C9113; G0378; J2370; J2704; J3010; J3475; J7120; U0002; 00813; 96374; 99140; 99284